=== PATIENT | female | born 1965 | race Caucasian/White ===

== ENCOUNTER → 2024-11-10 | Outpatient (CLI) | payer OTHER ==
[2024-11-10 16:20] LABS: Creatinine, Urine Random 50.7 mg/dL (27.00-270.00); Microalb/Creat Ratio UR, Rand 95.266 mg/g (0.000-30.000); Microalbumin, Random Urine 48.3 mg/L (0.000-20.000)
== END ==
LOC: LAB 13:40 → LAB SHORT 13:40
PROVIDERS: Family Medicine
DX: E11.8 Type 2 diabetes mellitus with unspecified complications (principal)
CPT/HCPCS: 82043; 82570